=== PATIENT | male | born 1965 | race Caucasian/White ===

== ENCOUNTER 2020-09-08 22:56 | Emergency (ER) | payer OTHER ==
[~2020-09-08] VITALS: Ht 167.6 cm; Wt 84.0 kg
--- NOTE | 2020-09-08 23:57 | NUR ---
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
--- NOTE | 2020-09-09 00:16 | NUR ---
pt sitting up on [address], police at for statement. pt denies additional needs, placed on pso2/bp monitoring at this time. provided warm blanket for comfort, [facility]. waiting for rad read
[2020-09-09] MEDS ORDERED: IBUPROFEN 600 MG TABLET PO ONE (00:30)
[2020-09-09 00:54] VITALS: BP 108/80
== END 2020-09-09 01:13 | disposition home or self-care (01) ==
LOC: ED 09-09 01:01
DX: S53.402A Unspecified sprain of left elbow, initial encounter (principal); Z72.9 Problem related to lifestyle, unspecified; F17.210 Nicotine dependence, cigarettes, uncomplicated; E66.9 Obesity, unspecified; Y04.8XXA Assault by other bodily force, initial encounter; Y93.89 Activity, other specified; Y92.59 Other trade areas as the place of occurrence of the external cause; Y99.8 Other external cause status
CPT/HCPCS: 29105; 99283